=== PATIENT | female | born 1975 | race Caucasian/White ===

== ENCOUNTER 2017-04-08 14:42 | Emergency (ER) | payer BC ==
[2017-04-08] MEDS ORDERED: predniSONE 20 MG TAB PO ONE (14:55)
[2017-04-08] MEDS ORDERED: methylPREDNISolone SODIUM SUC 40 MG/ML VIAL IM ONE (14:55)
[2017-04-08] MEDS ORDERED: CETIRIZINE HCL 10 MG TAB PO ONE (14:55)
[2017-04-08] MEDS ORDERED: MONTELUKAST 10 MG TAB PO ONE (14:56)
[2017-04-08 15:20] VITALS: TEMP 97.7
--- NOTE | 2017-04-08 16:05 | ED.PDOC ---
History of Present Illness - General Chief Complaint: Allergic Reaction Stated Complaint: yellowjacket stings Time Seen by Provider: 04/08/17 14:55 Source: patient Exam Limitations: no limitations - History of Present Illness Initial Comments: the patient is a 41-year-old female presenting to the emergency room secondary to final loss seems to the right forearm and hand. This occurred while she was at work apparently. This occurred approximately 2 hours prior to arrival. The patient was not going to come in but she started have significant swelling of the right upper extremitysurrounding the sites. She is not having any shortness of breath. She is not having any hives. She does have significant itching in that upper extremity however. She is able to move the hand and arm well. She is neurovascularly intact. No definite evidence of anaphylaxis at this time. This is more of a regional sting reaction. Timing/Duration: 1-3 hours Severity: moderate Improving Factors: nothing Worsening Factors: nothing Associated Symptoms: denies symptoms Allergies/Adverse Reactions: Allergies Codeine Allergy (Verified 04/08/17 15:03) Penicillins Allergy (Verified 04/08/17 15:04) Sulfamethoxazole w/Trimethoprim [From Bactrim] Allergy (Verified 04/08/17 15:04) Review of Systems - Review of Systems Constitutional: States: no symptoms reported EENTM: States: no symptoms reported Respiratory: States: no symptoms reported Cardiology: States: no symptoms reported Gastrointestinal/Abdominal: States: no symptoms reported Genitourinary: States: no symptoms reported Musculoskeletal: States: no symptoms reported Skin: States: see HPI Neurological: States: no symptoms reported Endocrine: States: no symptoms reported All other Systems: No Change from Baseline Past Medical History (General) - Patient Medical History Hx Seizures: No Hx Stroke: No Hx Dementia: No Hx Asthma: No Hx of COPD: No Hx Cardiac Disorders: No Hx Congestive Heart Failure: No Hx Pacemaker: No Hx Thyroid Disease: No Hx Diabetes: No Hx Gastroesophageal Reflux: No Surgical History: tonsillectomy Family Medical History - Family History Mother Family History: Unknown Physical Exam - Physical Exam General Appearance: Alert, Comfortable, No apparent distress Eye Exam: bilateral normal Ears, Nose, Throat: hearing grossly normal, normal ENT inspection, normal pharynx Neck: non-tender, full range of motion, supple Respiratory: lungs clear, normal breath sounds, no respiratory distress, no accessory muscle use Cardiovascular/Chest: normal peripheral pulses, no edema Peripheral Pulses: radial,right: 2+, radial,left: 2+ Gastrointestinal/Abdominal: soft Rectal Exam: deferred Extremity: normal range of motion, no pedal edema, normal capillary refill, swelling - surrounding the sites 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 The patient has received a dose of Solu-Medrol, prednisone, Zyrtec and Singulair. She is to take 10 mg of Zyrtec daily for the next 5 days as well. Reaction appears to be subsiding. No evidence of anaphylaxis. Vital signs have remained stable. She does need to keep some form of an antihistamine at her car or on her person at all times. ER warnings were given for any significant worsening. Departure - Departure Clinical Impression: Insect stings Qualifiers: Encounter type: initial encounter Injury intent: accidental or unintentional Qualified Code(s): T63.481A - Toxic effect of venom of other arthropod, accidental (unintentional), initial encounter Disposition: Discharge to Home or Self Care Condition: Fair Departure Forms: ED Discharge - Pt. Copy, Patient Portal Self Enrollment Diet: regular diet Activity: increase activity as tolerated Referrals: BARB TRAMMELL [Primary Care Provider] - 1-2 Weeks Additional Instructions: the patient is a 41-year-old female presenting secondary to multiple wasp stings to the right upper extremity with a significant regional reaction. The patient has received a dose of Solu-Medrol, prednisone, Zyrtec and Singulair. She is to take 10 mg of Zyrtec daily for the next 5 days as well. Reaction appears to be subsiding. No evidence of anaphylaxis. Vital signs have remained stable. She does need to keep some form of an antihistamine at her car or on her person at all times. ER warnings were given for any significant worsening.
[2017-04-08 16:18] VITALS: BP 105/75
[2017-04-08 16:24] VITALS: O2SAT 100
== END 2017-04-08 16:12 | disposition home or self-care (01) ==
LOC: ER 14:42
DX: T63.441A Toxic effect of venom of bees, accidental (unintentional), initial encounter (principal); R60.0 Localized edema; Z88.0 Allergy status to penicillin; Z88.6 Allergy status to analgesic agent; Z88.2 Allergy status to sulfonamides; Y92.89 Other specified places as the place of occurrence of the external cause; Y99.0 Civilian activity done for income or pay
CPT/HCPCS: J1030; J7512

== ENCOUNTER 2017-09-02 04:42 | Emergency (ER) | payer BC ==
[2017-09-02 04:59] VITALS: TEMP 96.9; O2SAT 100
--- NOTE | 2017-09-02 05:07 | ED.PDOC ---
History of Present Illness - General Chief Complaint: Respiratory Problem Stated Complaint: c/o SOB after taking Azo Time Seen by Provider: 09/02/17 05:02 Source: patient, Vital Signs reviewed Additional Information: 41 YEAR OLD HERE AFTER HAVING A ALLERGIC REACTION TO AZO HER GAVE HER A SUB Q SHOT OF EPINEPHRINE ( THEY HAD BEEN PRESCRIBED AFTER SHE HAD ALLERGIC REACTION TO YELLOW JACKET FEW WEEKS EARLIER SHE FELT HER THROAT WAS CLOSING AND GOT SHORT OF BREATH SHE ALSO REPORTS THAT SHE DEVELOPED RASH FOLLOWING 4-5 DAYS OF TAKING METHYLPREDNISONE BUT SHE STATES SHE CAN TOLERATE DECADRON - History of Present Illness Timing/Duration: 1 hour Severity: moderate Improving Factors: medication Worsening Factors: nothing, medication Associated Symptoms: shortness of breath Allergies/Adverse Reactions: Allergies Codeine Allergy (Verified 09/02/17 04:58) Influenza Vaccines Allergy (Verified 09/02/17 04:58) Penicillins Allergy (Verified 09/02/17 04:58) Sulfamethoxazole w/Trimethoprim [From Bactrim] Allergy (Verified 04/08/17 15:04) Home Medications: Ambulatory Orders NK [NK] 09/02/17 Review of Systems - Review of Systems Constitutional: States: no symptoms reported EENTM: States: throat swelling Respiratory: States: no symptoms reported, short of breath Cardiology: States: no symptoms reported Gastrointestinal/Abdominal: States: no symptoms reported Genitourinary: States: no symptoms reported Musculoskeletal: States: no symptoms reported Skin: States: no symptoms reported Neurological: States: no symptoms reported Endocrine: States: no symptoms reported Hematologic/Lymphatic: States: no symptoms reported Past Medical History (General) - Patient Medical History Hx Seizures: No Hx Stroke: No Hx Dementia: No Hx Asthma: No Hx of COPD: No Hx Cardiac Disorders: No Hx Congestive Heart Failure: No Hx Pacemaker: No Hx Hypertension: No Hx Thyroid Disease: No Hx Diabetes: No Hx Gastroesophageal Reflux: No Hx Renal Disease: No Hx of HIV: No Hx MRSA: No Surgical History: tonsillectomy - Vaccination History Hx Tetanus, Diphtheria Vaccination: No Hx Influenza Vaccination: No - allergy Hx Pneumococcal Vaccination: No - Social History Hx Tobacco Use: No Hx Alcohol Use: No Hx Substance Use: No Hx Substance Use Treatment: No Hx Depression: No Family Medical History - Family History Mother Family History: Unknown Physical Exam - Physical Exam General Appearance: Agitated, No apparent distress Eye Exam: bilateral normal Ears, Nose, Throat: hearing grossly normal, normal ENT inspection, normal pharynx Neck: non-tender, full range of motion, supple Respiratory: chest non-tender, lungs clear, normal breath sounds, no respiratory distress, no accessory muscle use Cardiovascular/Chest: normal peripheral pulses, regular rate, rhythm, no edema, no gallop, no JVD Peripheral Pulses: radial,right: 2+, radial,left: 2+, femoral,right: 2+, femoral ,left: 2+, popliteal,right: 2+, popliteal,left: 2+, dorsalis pedis,right: 2+ Gastrointestinal/Abdominal: normal bowel sounds, non tender, soft, no organomegaly, no pulsatile mass Progress - Results/Orders Results/Orders: 5.55 AM POST TREATMENT SHE IS FEELING BETTER LUNGS CLEAR PHARYNX NO EDEMA NO STRIDOR NO WHEEZING MAY BE DISCHARGED ADVISED TO TAKE BENADRYL AND PEPCID 20 MG PO OTC RETUEN IF SYMPTOMS RECUR Departure - Departure Clinical Impression: Allergic reaction caused by a drug Time of Disposition: 05:57 Disposition: Discharge to Home or Self Care Condition: Good Departure Forms: ED Discharge - Pt. Copy, Patient Portal Self Enrollment Diet: regular diet Referrals: BARB TRAMMELL [Primary Care Provider] - 1-2 Weeks Home Medications: Ambulatory Orders NK [NK] 09/02/17 Comments: SUGGEST BENADRYL 25 MG PO Q 6 H PEPCID 20 MG PO Q DAY RETURN IF SYMPTOMS RECUR
[2017-09-02] MEDS ORDERED: DEXAMETHASONE INJ 10 MG/ML VIAL IV ONE (05:12)
[2017-09-02] MEDS ORDERED: diphenhydrAMINE HCL 50 MG/ML VIAL IV ONE (05:15)
[2017-09-02 06:47] VITALS: BP 110/72
== END 2017-09-02 06:49 | disposition home or self-care (01) ==
LOC: ER 04:42
DX: T50.995A Adverse effect of other drugs, medicaments and biological substances, initial encounter (principal); N30.90 Cystitis, unspecified without hematuria
CPT/HCPCS: 36416; 81001; 87086; J1100; J1200

== ENCOUNTER → 2019-12-19 | Outpatient (CLI) | payer OTHER ==
--- NOTE | 2019-12-19 11:55 | MRI ---
EXAM DESCRIPTION: Upper Extremity Joint,Left: MRI. CLINICAL HISTORY: 44 years Female IMPINGEMENT SYNDROME LEFT SHOULDER COMPARISON: Shoulder left radiographs December 13. TECHNIQUE: Multiplanar, high-field MRI, multiple sequences, without contrast: Left shoulder. FINDINGS: Full-thickness tear of the posterior fibers of the supraspinatus tendon which are retracted approximately 1.3 cm at the confluence with the infraspinatus tendon. The anterior fibers are retracted approximately 6 mm with fluid seen in the gap. Large spur on the anterior greater tuberosity at the anterior fibers insertion site. Intermediate signal and thickening indicating tendinopathy infraspinatus tendon. Intermediate signal in the distal subscapularis tendon with minimal fluid at the insertion. Grade 1 muscle atrophy in the infraspinatus and supraspinatus muscles. Minimal fluid signal in the musculotendinous junction of the supraspinatus. Fluid in the subacromion/subdeltoid bursa. Cortical erosion in the mid greater tuberosity. Subcortical cyst formation and marrow edema in the anterior greater tuberosity, and posterior to the bicipital groove. Minimal fluid in the subcoracoid bursa. Type I curvature of the acromion process. Effusion in the AC joint capsule. Minimal flattening of the coracoacromial arch with the distal clavicle impressing on the anterior supraspinatus tendon. Coracoacromial ligament and of the coracoid ligaments are intact. Minimal glenohumeral joint effusion. Minimal thickening of the proximal long head biceps tendon. Fluid in the bicipital groove. Bicipital labral anchor is intact. Degenerative signal in the anterior labrum. No labral tears. Minimal chondromalacia in the glenohumeral joint but no subchondral lesions. IMPRESSION: 1. Full-thickness tear of the supraspinatus tendon with more retraction of the posterior fibers than anterior fibers. Fluid within the gap between the anterior fibers in the tuberosity. Minimal fluid in the musculotendinous junction. Spur formation on the anterior tuberosity with marrow edema in the tuberosity and posterior to the bicipital groove. Fluid in the groove and in the subacromial-subdeltoid bursa. 2. Tendinopathy of the distal supraspinatus tendon but no tear. Acute tendinopathy in the distal subscapularis tendon insertion. 3. AC joint arthrosis and hypertrophy. No distal clavicle impressing on the superior anterior aspect of the musculotendinous junction of the supraspinatus with mild flattening of the coracoacromial arch. Minimal subcoracoid bursitis. 4. Labral degeneration anterior segment but no tear. No glenohumeral osteochondral lesions. Tendinosis proximal long head biceps tendon. Suprapatellar blank appears intact. Electronically signed by: Zuhair Hopper MD 12/19/2019 11:53 AM CDT
== END ==
LOC: MRI 09:48
PROVIDERS: ATTEND Family Medicine
DX: M75.42 Impingement syndrome of left shoulder (principal); M75.102 Unspecified rotator cuff tear or rupture of left shoulder, not specified as traumatic; S43.432A Superior glenoid labrum lesion of left shoulder, initial encounter; M75.92 Shoulder lesion, unspecified, left shoulder; M19.012 Primary osteoarthritis, left shoulder; M75.22 Bicipital tendinitis, left shoulder; M71.812 Other specified bursopathies, left shoulder; M25.712 Osteophyte, left shoulder; R60.9 Edema, unspecified